=== PATIENT | female | born 1940 | race Two or more races ===

== ENCOUNTER 2022-05-07 14:49 | Inpatient (IN) | payer MEDICARE, OTHER ==
[~2022-05-07] VITALS: Ht 157.5 cm; Wt 62.1 kg
--- NOTE | 2022-05-07 15:09 | NUR ---
BIB SON FOR FURTHER EVAL AND MANAGEMENT OF RIGHT LEG CELLULITIS. THE PATIENT IS ALERT AND ORIENTED X3. IN ROOM AIR AND DENIES SOB. RESPIRATION REGLAR AND UNLABORED. THE PATIENT IS ATTACHED TO THE MONITOR. BLANKET PROVIDED FOR COFMORT. WILL CONTINUE TO MONITOR THE PATIENT.
--- NOTE | 2022-05-07 15:11 | NUR ---
DR HARO AT THE BEDSIDE
[2022-05-07] MEDS ORDERED: BENA40TA8 PO (15:24)
[2022-05-07] MEDS ORDERED: ATEN50TA PO (15:24)
[2022-05-07] MEDS ORDERED: METH5TAB6 PO (15:24)
[2022-05-07] MEDS ORDERED: SIMV-46 PO (15:24)
[2022-05-07] MEDS ORDERED: DABI150C PO (15:24)
--- NOTE | 2022-05-07 15:24 | NUR ---
IV LINE IS ESTABLISHED, BLOOD SPECIMEN COLLECTED AND SENT TO THE LAB. THE LINE IS SALINE LOCKED.
[2022-05-07 15:47] LABS: BASOPHILS # (AUTO) 0.1 K/uL (0.0-0.2); BASOPHILS % (AUTO) 0.9 % (0.0-2.0); EOSINOPHILS % (AUTO) 6.3 % (0.0-6.0); HEMATOCRIT 36 % (33-45); HEMOGLOBIN 12.2 g/dL (11.5-14.8); LYMPHOCYTES # (AUTO) 2.4 K/uL (0.8-4.8); LYMPHOCYTES % (AUTO) 29.8 % (20.0-44.0); MEAN CORPUSCULAR HGB CONC 34 g/dl (31.0-36.0); MEAN CORPUSCULAR VOLUME 90 fL (82-100); MONOCYTES # (AUTO) 0.5 K/uL (0.1-1.30); MONOCYTES % (AUTO) 6.4 % (2.0-12.0); NEUTROPHILS # (AUTO) 4.5 K/uL (1.8-8.9); NEUTROPHILS % (AUTO) 56.6 % (43.0-81.0); PLATELET COUNT (AUTO) 279 K/uL (150-450); RED BLOOD CELL COUNT(AUTO) 3.97 MIL/uL (4.0-5.2)
[2022-05-07 15:56] LABS: CARBON DIOXIDE 25 mmol/L (21-32); CHLORIDE 102 mmol/L (98-107); CREATININE 1.2 mg/dL (0.6-1.3); GLUCOSE 95 mg/dL (74-106); POTASSIUM 5.3 mmol/L (3.5-5.1); SODIUM SERUM 135 mmol/L (136-145); UREA NITROGEN, BLOOD 32 mg/dL (7-18)
--- NOTE | 2022-05-07 16:46 | NUR ---
COVID ANTIGEN SWAB DONE AND SENT TO THE LAB
[2022-05-07] MEDS ORDERED: VANCOMYCIN 1 GM in IV D5W 250 ML IV ONE (17:00)
[2022-05-07] MEDS ORDERED: FUROSEMIDE 20 MG/2 ML VIAL ONE (17:19)
[2022-05-07] MEDS ORDERED: IV NS 0.9% 500 ML BAG IV ONE (17:30)
[2022-05-07] MEDS ORDERED: ONDANSETRON HCL/PF 4 MG/2 ML VIAL IVP PRN (17:30)
[2022-05-07] MEDS ORDERED: ZOLPIDEM TARTRATE 5 MG TABLET PO PRN (17:30)
[2022-05-07] MEDS ORDERED: ACETAMINOPHEN 325 MG TABLET PO PRN (17:30)
[2022-05-07] MEDS ORDERED: MAGNESIUM HYDROXIDE 30 ML UDC PO PRN (17:30)
[2022-05-07] MEDS ORDERED: MAG HYDROX/AL HYDROX/SIMETH 30 ML UDC PO PRN (17:30)
[2022-05-07] MEDS ORDERED: Z GUARD REMEDY 4 OZ OINT TP PRN (17:30)
[2022-05-07] MEDS ORDERED: FUROSEMIDE 40 MG/4 ML VIAL IV ONE (17:30)
--- NOTE | 2022-05-07 19:14 | NUR ---
REPORT GIVEN TO NURSE CASTILLO
--- NOTE | 2022-05-07 19:55 | NUR ---
RECEIVED PATIENT AWAKE WITH ONGOING IV MEDS INFUSION. AAOX4. ABLE TO USE WALKER. VITALS WITHIN NORMAL RANGE
--- NOTE | 2022-05-07 20:31 | NUR ---
PT GOING TO 324-2 PER RN ALARM INSTALLATION TECHNICIAN.
--- NOTE | 2022-05-07 20:56 | NUR ---
REPORT GIVEN TO TAB ALLEN
--- NOTE | 2022-05-07 21:02 | NUR ---
PT TRANSFERRED TO [facility]
[2022-05-07 21:04] VITALS: BP 130/54
[2022-05-07] MEDS: SIMVASTATIN 20 MG TABLET PO SCH (21:41)
[2022-05-07] MEDS: IV NS 0.9% 1,000 ML IV PRN (21:42)
--- NOTE | 2022-05-07 22:33 | NUR ---
MS/TELE/RN RECEIVED PATIENT AT AROUND 21:05 FROM E.R. VIA [facility]. PATIENT WAS AWAKE, ALERT, ORIENTED X 4, NO C/O PAIN, NO SIGNS OF DISTRESS NOTED. MADE PATIENT COMFORTABLE IN BED, ADMISSION DONE, PATIENT IS SLOVENIAN SPEAKING, UNDERSTANDS AND SPEAKS LITTLE DUTCH, SHIREENJACQUELINE MÉNDEZA, INTERPRETED FOR THE PATIENT. PATIENT UNABLE TO PROVIDE COVID19 AND PNA VACCINES INFORMATIONS. PHYSICAL ASSESSMENT DONE, TAUGHT THE USE OF CALL LIGHT AND PLACED IT AT BEDSIDE WITHIN REACH. DALL PRECAUTIONS PER PROTOCOL IMPLEMENTED. PLAN OF CARE DISCUSSED, VERBALISED UNDERSTANDING AND AGREEMENT TO THE PLAN, NEEDS ATTENDED, WILL MONITOR.
--- NOTE | 2022-05-08 05:50 | NUR ---
MS/TELE/RN PATIENT IS STILL SLEEPING AT THIS TIME, NO SIGNS OF DISTRESS NOTED, CALL LIGHT IN EACH, ALL NEEDS ATTENDED AT THIS TIME, WILL CONTINUE TO MONITOR.
--- NOTE | 2022-05-08 07:00 | NUR ---
MS RN OPENING NOTES PATIENT LAYING IN BED, A/O X 4, ABLE TO MAKE NEEDS KNOWN. TOLERATING WELL ON ROOM AIR WITH NO S/S RESPIRATORY DISTRESS. NO COMPLAINTS OF PAIN OR DISCOMFORT AT THIS TIME. L AC # 20 G CLEAN AND INTACT WITH NS INFUSING @ 75 ML/HR. SAFETY MEASURES IN PLACE: BED IN LOWEST LOCKED POSITION, SIDE RAILS UP X 2, CALL LIGHT WITHIN REACH. WILL CONTINUE TO MONITOR.
[2022-05-08 07:29] LABS: BASOPHILS # (AUTO) 0.1 K/uL (0.0-0.2); BASOPHILS % (AUTO) 0.8 % (0.0-2.0); HEMATOCRIT 35 % (33-45); HEMOGLOBIN 11.6 g/dL (11.5-14.8); LYMPHOCYTES # (AUTO) 1.8 K/uL (0.8-4.8); LYMPHOCYTES % (AUTO) 26.1 % (20.0-44.0); MEAN CORPUSCULAR HGB CONC 33 g/dl (31.0-36.0); MEAN CORPUSCULAR VOLUME 91 fL (82-100); MONOCYTES # (AUTO) 0.5 K/uL (0.1-1.30); MONOCYTES % (AUTO) 7.6 % (2.0-12.0); NEUTROPHILS # (AUTO) 4.1 K/uL (1.8-8.9); NEUTROPHILS % (AUTO) 58.5 % (43.0-81.0); PLATELET COUNT (AUTO) 258 K/uL (150-450); RED BLOOD CELL COUNT(AUTO) 3.86 MIL/uL (4.0-5.2); WHITE BLOOD COUNT (AUTO) 7.1 K/uL (4.3-11.0)
[2022-05-08 07:44] LABS: CALCIUM, SERUM 8.8 mg/dL (8.5-10.1); CHLORIDE 106 mmol/L (98-107); GLUCOSE 80 mg/dL (74-106); MAGNESIUM 2.3 mg/dL (1.8-2.4); PHOSPHORUS 4.1 mg/dL (2.5-4.9); POTASSIUM 5.1 mmol/L (3.5-5.1); SODIUM SERUM 140 mmol/L (136-145); UREA NITROGEN, BLOOD 25 mg/dL (7-18)
[2022-05-08 08:00] LABS: CARBON DIOXIDE 28 mmol/L (21-32)
[2022-05-08 08:01] LABS: THYROID STIMULATING HORMONE 3.757 uIU/mL (0.358-3.74)
[2022-05-08] MEDS: ATENOLOL 50 MG TABLET PO SCH (09:00)
[2022-05-08] MEDS: BENAZEPRIL HCL 10 MG TABLET PO SCH (09:25)
[2022-05-08] MEDS: METHIMAZOLE (5MG) 5 MG TABLET PO SCH (09:26)
[2022-05-08] MEDS: IV NS 0.9% 1,000 ML IV PRN (11:55)
[2022-05-08] MEDS: DABIGATRAN ETEXILATE MESYLATE 150 MG CAPSULE PO SCH (16:31)
[2022-05-08] MEDS ORDERED: ENOXAPARIN SODIUM 40 MG/0.4 ML DISP.SYRIN SQ SCH ×2 (17:00→21:00)
[2022-05-08] MEDS ORDERED: VANCOMYCIN 0.75 GM in IV D5W 250 ML IV SCH (18:00)
--- NOTE | 2022-05-08 19:00 | NUR ---
MS RN CLOSING NOTES PATIENT LAYING IN BED, A/O X 4, ABLE TO MAKE NEEDS KNOWN. TOLERATING WELL ON ROOM AIR WITH NO S/S RESPIRATORY DISTRESS. NO COMPLAINTS OF PAIN OR DISCOMFORT AT THIS TIME. L AC # 20 G CLEAN AND INTACT AND FLUSHING WELL. SAFETY MEASURES IN PLACE: BED IN LOWEST LOCKED POSITION, SIDE RAILS UP X 2, CALL LIGHT WITHIN REACH. ALL NEEDS MET. WILL ENDORSE TO SANITARY CHEMIST FOR ITALO.
--- NOTE | 2022-05-08 19:40 | NUR ---
MS RN OPENING NOTE PATIENT AWAKE IN BED, ALERT/ORIENTED X 4, PT ABLE TO MAKE NEEDS KNOWN, MALAWIAN SPEAKING. PATIENT DENIES PAIN AT THIS TIME. PATIENT STABLE ON RA, NO S/S OF DISTRESS OF DISTRESS OR SOB NOTED, BREATHING EVEN AND UNLABORED. LEFT AC #20G IV ACCESS INTACT AND INFUSING NS @ 75 ML/HR. SAFETY MEASURES IN PLACE: CALL LIGHT WITHIN REACH, SIDE RAILS UP X 2, BED LOCKED IN LOWEST POSITION, BED ALARM ON. WILL CONTINUE TO MONITOR PATIENT
[2022-05-08 20:00] VITALS: BP 106/59
[2022-05-08] MEDS: SIMVASTATIN 20 MG TABLET PO SCH (21:28)
[2022-05-09] MEDS: IV NS 0.9% 1,000 ML IV PRN (04:23)
[2022-05-09 06:39] LABS: CALCIUM, SERUM 8.6 mg/dL (8.5-10.1); CARBON DIOXIDE 29 mmol/L (21-32); CHLORIDE 108 mmol/L (98-107); CREATININE 0.8 mg/dL (0.6-1.3); GLUCOSE 93 mg/dL (74-106); PHOSPHORUS 2.9 mg/dL (2.5-4.9); POTASSIUM 4.7 mmol/L (3.5-5.1); SODIUM SERUM 140 mmol/L (136-145); UREA NITROGEN, BLOOD 14 mg/dL (7-18)
[2022-05-09 06:50] LABS: BASOPHILS # (AUTO) 0.1 K/uL (0.0-0.2); BASOPHILS % (AUTO) 0.9 % (0.0-2.0); EOSINOPHILS % (AUTO) 7.5 % (0.0-6.0); HEMATOCRIT 35 % (33-45); HEMOGLOBIN 11.7 g/dL (11.5-14.8); LYMPHOCYTES # (AUTO) 1.8 K/uL (0.8-4.8); LYMPHOCYTES % (AUTO) 27.4 % (20.0-44.0); MEAN CORPUSCULAR HGB CONC 33 g/dl (31.0-36.0); MEAN CORPUSCULAR VOLUME 91 fL (82-100); MONOCYTES # (AUTO) 0.4 K/uL (0.1-1.30); MONOCYTES % (AUTO) 6.7 % (2.0-12.0); NEUTROPHILS # (AUTO) 3.9 K/uL (1.8-8.9); NEUTROPHILS % (AUTO) 57.5 % (43.0-81.0); PLATELET COUNT (AUTO) 245 K/uL (150-450); RED BLOOD CELL COUNT(AUTO) 3.88 MIL/uL (4.0-5.2); WHITE BLOOD COUNT (AUTO) 6.7 K/uL (4.3-11.0)
--- NOTE | 2022-05-09 07:09 | NUR ---
MS RN CLOSING NOTE PATIENT AWAKE IN BED, ALERT/ORIENTED X 4, PT ABLE TO MAKE NEEDS KNOWN, CZECH SPEAKING. PATIENT DENIES PAIN AT THIS TIME. PATIENT STABLE ON RA, NO S/S OF DISTRESS OF DISTRESS OR SOB NOTED, BREATHING EVEN AND UNLABORED. LEFT AC #20G IV ACCESS INTACT AND INFUSING NS @ 75 ML/HR. MEDICATIONS GIVEN ORDERED, PT NEEDS MET THROUGHOUT SHIFT. SAFETY MEASURES IN PLACE: CALL LIGHT WITHIN REACH, SIDE RAILS UP X 2, BED LOCKED IN LOWEST POSITION, BED ALARM ON. ENDORSED TO DAYSHIFT NURSE FOR CONTINUITY OF CARE
--- NOTE | 2022-05-09 07:28 | NUR ---
MS RN OPENING NOTES RECEIVED PT IN BED ASLEEP, EASILY AROUSED. A/O X4, KENYAN SPEAKING. ABLE TO MAKE NEEDS KNOWN. ON RA, TOLERATING WELL. NO SOB NOTED. NOT IN ANY SIGN OF RESPIRATORY DISTRESS. IV ACCESS IN LAC G #20 INTACT AND PATENT WITH NS INFUSING AT 75ML/HR. SAFETY MEASURES IN PLACE: BED IN LOWEST AND LOCKED POSITION, SIDE RAILS UP X3, BED ALARM ON, AND CALL LIGHT WITHIN REACH. WILL CONTINUE TO MONITOR PT.
[2022-05-09 08:00] VITALS: BP 120/54
[2022-05-09] MEDS: DABIGATRAN ETEXILATE MESYLATE 150 MG CAPSULE PO SCH (09:45)
[2022-05-09] MEDS: METHIMAZOLE (5MG) 5 MG TABLET PO SCH (09:45)
[2022-05-09 09:46] VITALS: BP 120/54
[2022-05-09] MEDS: ATENOLOL 50 MG TABLET PO SCH (09:46)
[2022-05-09] MEDS: BENAZEPRIL HCL 10 MG TABLET PO SCH (09:46)
[2022-05-09] MEDS ORDERED: CEPH500C2 PO (10:28)
[2022-05-09] MEDS ORDERED: SULF1TAB48 PO (10:28)
--- NOTE | 2022-05-09 10:33 | NUR ---
WOUND CARE CONSULT: PT PRESENTS WITH WEEPING EDEMA TO RT LOWER LEG, PRESENT ON ADMISSION. DR NOEL NOTIFIED OF DPM CONSULT REQUEST. IN AGREEMENT WITH PLAN OF CARE.
--- NOTE | 2022-05-09 14:22 | NUR ---
DATA INTEGRATION DEVELOPER NOTES PT DISCHARGED TO HOME IN STABLE CONDITION. PT A/O X4, ABLE TO MAKE NEEDS KNOWN. ON RA, TOLERATING WELL WITH SPO2 98%. BREATHING EVEN AND UNLABORED. NOT IN ANY SIGN OF RESPIRATORY DISTRESS. VITAL SIGNS TAKEN, STABLE, AND RECORDED. PT REFUSED TO HAVE HER SKIN ISSUES PHOTOGRAPHED. ALL BELONGINGS ACCOUNTED FOR. DISCHARGED INSTRUCTIONS AND HEALTH TEACHINGS GIVEN TO PT AND PT VERBALIZED UNDERSTANDING. IV ACCESS IN LAC G #20 REMOVED WITH NO ACTIVE BLEEDING NOTED. DRY PRESSURE DRESSING APPLIED AT BOTH SITE. PT LEFT THE UNIT AT 1415 VIA WHEELCHAIR ACCOMPANIED BY LIZET LAUGERRE WITH HER DAUGHTER AND SON JOHN. AND CHARGED NURSE AWARE OF DISCHARGED.
[2022-05-09] MEDS ORDERED: VANCOMYCIN 1 GM in IV D5W 250 ML IV SCH (18:00)
[2022-05-10] MEDS ORDERED: BENAZEPRIL HCL 20 MG TABLET PO SCH (09:00)
== END 2022-05-09 14:30 | disposition home or self-care (01) | DRG 603 ==
LOC: ER 14:57 → MED 20:57
PROVIDERS: ADMIT Nurse Practitioner Acute Care; ATTEND Nurse Practitioner Acute Care
DX: L03.115 Cellulitis of right lower limb (principal); E87.1 Hypo-osmolality and hyponatremia; E03.9 Hypothyroidism, unspecified; E87.5 Hyperkalemia; Z79.899 Other long term (current) drug therapy; E78.5 Hyperlipidemia, unspecified; I10 Essential (primary) hypertension; R79.89 Other specified abnormal findings of blood chemistry; M20.41 Other hammer toe(s) (acquired), right foot; M20.42 Other hammer toe(s) (acquired), left foot; I89.0 Lymphedema, not elsewhere classified; I87.2 Venous insufficiency (chronic) (peripheral)
CPT/HCPCS: 36415; 80048-TC; 83735-TC; 84100-TC; 84439-TC; 84443-TC; 85025-TC; 85652-TC; 86140-TC; 87081-TC; 93971-TC; C9803; G0378; J1940; J3370; J7030; J7040; J7060

== ENCOUNTER 2022-11-07 10:26 | Emergency (ER) | payer MEDICARE, OTHER ==
[~2022-11-07] VITALS: Ht 154.9 cm; Wt 72.6 kg
[~2022-11-07 10:26] MED LIST: ATEN50TA PO; BENA40TA8 PO; CEPH500C2 PO; DABI150C PO; METH5TAB6 PO; SIMV-46 PO; SULF1TAB48 PO
--- NOTE | 2022-11-07 10:49 | NUR ---
MOVE SHEET SUBMITTED.
--- NOTE | 2022-11-07 10:49 | NUR ---
SEEN BY ER DOCTOR
--- NOTE | 2022-11-07 11:04 | NUR ---
EMT AT BEDSIDE FOR EKG
--- NOTE | 2022-11-07 11:09 | NUR ---
ESTABLISHED IV 20G RIGHT AC. BLOOD DRAWN AND SENT TO LAB FOR PICKUP.
[2022-11-07 11:36] LABS: BASOPHILS # (AUTO) 0.1 K/uL (0.0-0.2); BASOPHILS % (AUTO) 0.9 % (0.0-2.0); EOSINOPHILS % (AUTO) 3.7 % (0.0-6.0); HEMATOCRIT 39 % (33-45); HEMOGLOBIN 12.9 g/dL (11.5-14.8); LYMPHOCYTES # (AUTO) 1.4 K/uL (0.8-4.8); LYMPHOCYTES % (AUTO) 20.9 % (20.0-44.0); MEAN CORPUSCULAR HGB CONC 33 g/dl (31.0-36.0); MEAN CORPUSCULAR VOLUME 92 fL (82-100); MONOCYTES # (AUTO) 0.4 K/uL (0.1-1.30); MONOCYTES % (AUTO) 6.6 % (2.0-12.0); NEUTROPHILS # (AUTO) 4.6 K/uL (1.8-8.9); NEUTROPHILS % (AUTO) 67.9 % (43.0-81.0); PLATELET COUNT (AUTO) 312 K/uL (150-450); RED BLOOD CELL COUNT(AUTO) 4.17 MIL/uL (4.0-5.2); WHITE BLOOD COUNT (AUTO) 6.8 K/uL (4.3-11.0)
[2022-11-07 12:04] LABS: ALANINE AMINOTRANSFERASE 13 U/L (12-78); ALBUMIN 3.5 g/dL (3.4-5.0); ALKALINE PHOSPHATASE 56 U/L (46-116); ASPARTATE AMINOTRANSFERASE 22 U/L (15-37); BILIRUBIN,DIRECT 0.1 mg/dL (0.0-0.2); BILIRUBIN,TOTAL 0.5 mg/dL (0.2-1.0); CALCIUM, SERUM 9.4 mg/dL (8.5-10.1); CARBON DIOXIDE 28 mmol/L (21-32); CHLORIDE 101 mmol/L (98-107); CREATININE 0.9 mg/dL (0.6-1.3); GLUCOSE 125 mg/dL (74-106); POTASSIUM 4.6 mmol/L (3.5-5.1); SODIUM SERUM 135 mmol/L (136-145); TOTAL PROTEIN, SERUM 7.8 g/dL (6.4-8.2); UREA NITROGEN, BLOOD 14 mg/dL (7-18)
--- NOTE | 2022-11-07 12:13 | NUR ---
RSDIOLOGY CALLED TO F/U ON ORDERS
[2022-11-07 12:56] LABS: BILIRUBIN,URINE NEGATIVE (NEGATIVE); COLOR,URINE YELLOW (YELLOW); LEUKOCYTE ESTERASE ,URINE NEGATIVE (NEGATIVE); NITRITE, URINE NEGATIVE (NEGATIVE); PH,URINE 7.5 (5.0-8.0); PROTEIN,URINE NEGATIVE (NEGATIVE); UGLUCOSE NEGATIVE (NEGATIVE); UROBILINOGEN,URINE 0.2 EU/dL (0.2)
[2022-11-07] MEDS ORDERED: LIDO1ADH TP (13:04)
[2022-11-07 14:25] VITALS: BP 145/75
== END 2022-11-07 14:27 | disposition home or self-care (01) ==
LOC: ER 10:47
DX: R42 Dizziness and giddiness (principal); I10 Essential (primary) hypertension; E78.00 Pure hypercholesterolemia, unspecified; Z88.2 Allergy status to sulfonamides; Z88.8 Allergy status to other drugs, medicaments and biological substances; Z79.899 Other long term (current) drug therapy
CPT/HCPCS: 36415; 70450-TC; 71045-TC; 80048-TC; 80076-TC; 84484-TC; 85025-TC; 85652-TC; 85730-TC

== ENCOUNTER 2022-12-17 16:01 | Inpatient (IN) | payer MEDICARE, OTHER ==
[~2022-12-17] VITALS: Ht 162.6 cm; Wt 61.7 kg
[~2022-12-17 16:01] MED LIST changes: +LIDO1ADH TP
--- NOTE | 2022-12-17 16:11 | NUR ---
BIB FAMILY C/O WORSENING SOB X 3 DAYS, THROAT DISCOMFORT/TIGHTNESS X TODAY, FAMILY S/P TAKING NEW CARDIAC MEDICATION SINCE MONDAY. INSPIRATORY AND EXPIRATORY WHEEXING NOTED. PT PLACED IN BED AND CONNECTED TO MONITOR.
--- NOTE | 2022-12-17 16:12 | NUR ---
ESTABLISHED IV ACCESS, BLOOD DRAWN AND SENT TO LAB. AT BEDSIDE FOR EVAL.
--- NOTE | 2022-12-17 16:49 | NUR ---
MOVE SHEET SUBMITTED.
--- NOTE | 2022-12-17 17:00 | NUR ---
[facility] CALLED SPECIALTY COOK PAGED.
[2022-12-17 17:01] LABS: BASOPHILS % (AUTO) 0.1 % (0.0-2.0); EOSINOPHILS % (AUTO) 0.3 % (0.0-6.0); HEMATOCRIT 36 % (33-45); HEMOGLOBIN 11.7 g/dL (11.5-14.8); LYMPHOCYTES # (AUTO) 1.1 K/uL (0.8-4.8); LYMPHOCYTES % (AUTO) 9.9 % (20.0-44.0); MEAN CORPUSCULAR HGB CONC 32 g/dl (31.0-36.0); MEAN CORPUSCULAR VOLUME 92 fL (82-100); MONOCYTES # (AUTO) 0.1 K/uL (0.1-1.30); MONOCYTES % (AUTO) 1.1 % (2.0-12.0); NEUTROPHILS # (AUTO) 10.2 K/uL (1.8-8.9); NEUTROPHILS % (AUTO) 88.6 % (43.0-81.0); PLATELET COUNT (AUTO) 233 K/uL (150-450); RED BLOOD CELL COUNT(AUTO) 3.94 MIL/uL (4.0-5.2); WHITE BLOOD COUNT (AUTO) 11.6 K/uL (4.3-11.0)
--- NOTE | 2022-12-17 17:02 | NUR ---
URINE SAMPLE COLLECTED AND SENT TO LAB
[2022-12-17 17:18] LABS: CALCIUM, SERUM 9.5 mg/dL (8.5-10.1); CARBON DIOXIDE 24 mmol/L (21-32); CHLORIDE 98 mmol/L (98-107); CREATININE 1.2 mg/dL (0.6-1.3); GLUCOSE 137 mg/dL (74-106); POTASSIUM 4.8 mmol/L (3.5-5.1); SODIUM SERUM 133 mmol/L (136-145); UREA NITROGEN, BLOOD 19 mg/dL (7-18)
--- NOTE | 2022-12-17 17:24 | NUR ---
LACTIC ACID 6.0 DR. HARO INFORMED.
[2022-12-17 17:30] LABS: ALANINE AMINOTRANSFERASE 28 U/L (12-78); ALBUMIN 3.4 g/dL (3.4-5.0); ALKALINE PHOSPHATASE 85 U/L (46-116); ASPARTATE AMINOTRANSFERASE 32 U/L (15-37); BILIRUBIN,DIRECT 0.7 mg/dL (0.0-0.2); BILIRUBIN,TOTAL 1.3 mg/dL (0.2-1.0)
[2022-12-17 18:11] LABS: BILIRUBIN,URINE NEGATIVE (NEGATIVE); COLOR,URINE YELLOW (YELLOW); LEUKOCYTE ESTERASE ,URINE 1+ (NEGATIVE); NITRITE, URINE NEGATIVE (NEGATIVE); PROTEIN,URINE 2+ mg/dl (NEGATIVE); UGLUCOSE NEGATIVE (NEGATIVE)
[2022-12-17 18:26] LABS: BACTERIA,URINE Moderate /HPF (None Seen); SQUAMOUS EPITHELIAL CELL,UR Few /HPF (None Seen)
--- NOTE | 2022-12-17 18:28 | NUR ---
Covid-19 swab is taken and sent to lab.
[2022-12-17] MEDS ORDERED: CEFEPIME 1 GM in IV D5W 50 ML IV ONE (19:00)
[2022-12-17] MEDS ORDERED: VANCOMYCIN 1 GM in IV D5W 250 ML IV ONE (19:00)
[2022-12-17] MEDS ORDERED: IV NS 0.9% 1,000 ML BAG IV ONE (19:00)
[2022-12-17] MEDS ORDERED: CEFEPIME 1 GM VIAL ONE (19:42)
[2022-12-17] MEDS ORDERED: VANCOMYCIN 1 GM VIAL ONE (19:42)
[2022-12-17] MEDS ORDERED: MENTHOL TP PRN (20:30)
[2022-12-17] MEDS ORDERED: LIDOCAINE TP PRN (20:30)
[2022-12-17] MEDS ORDERED: ONDANSETRON HCL/PF 4 MG/2 ML VIAL IVP PRN (20:30)
--- NOTE | 2022-12-17 21:15 | NUR ---
REPORT GIVEN TO JEFF RN ROOM 117
--- NOTE | 2022-12-17 21:30 | NUR ---
COTTON SAMPLER AT BEDSIDE
--- NOTE | 2022-12-17 21:50 | NUR ---
PT TRANSFERRING TO 117-1 VIA ACLS PROTOCOL. ALL BELONGINGS WITH PT. VSS.
[2022-12-17] MEDS: SIMVASTATIN 20 MG TABLET PO SCH (22:11)
[2022-12-17] MEDS: IV NS 0.9% 1,000 ML IV PRN (22:12)
[2022-12-17] MEDS ORDERED: CEFTRIAXONE 1 G VIAL ONE (22:15)
[2022-12-17] MEDS: CEFTRIAXONE 1 G in IV D5W 50 ML IV SCH (22:17)
[2022-12-17 22:25] VITALS: BP 138/74
--- NOTE | 2022-12-17 22:30 | NUR ---
CHECK CLERKWORKFORCE ADVISOR NOTES - RECEIVED PATIENT FROM ED VIA [facility]ATTAN AT 2151 UNDER THE CARE OF NICO HERNANDEZ NP WITH PRIMARY DX OF SEPSIS AND SECONDARY DX OF PYELONEPHRITIS. PATIENT IS A/O X4, ICELANDIC SPEAKING AND A POOR HISTORIAN. CONTACTED FAMILY AND SPOKE WITH DAUGHTER AND GRANDSON FOR PMI. BREATHING IS EVEN AND NON-LABORED BUT WITH SOME SHORTNESS OF BREATH. ON O2 AT 2LPM VIA NASAL CANULA. NOT IN APPARENT DISTRESS. DENIES PAIN AT THIS TIME. HAS LEFT ANTECUBITAL IV ACCESS #20G AND SALINE LOCKED. NO S/S OF INFILTRATION NOTED. PATIENT IS AMBULATORY WITH FWW AND USES THE BEDSIDE COMMODE. VS TAKEN AND SKIN ASSESSMENT DONE. ALL BELONGINGS ACCOUNTED FOR. ORIENTED PATIENT TO UNIT AND STAFF. SAFETY PRECAUTIONS IN PLACE: BED LOCKED AND IN LOW POSITION, SIDE RAILS UP X2, CALL LIGHT WITHIN REACH. WILL CONTINUE PLAN OF CARE.
[2022-12-18] VITALS: BP 100/57
[2022-12-18 04:00] VITALS: BP 102/52
--- NOTE | 2022-12-18 07:07 | NUR ---
TROLLEY COACH DRIVER CLOSING NOTES - PATIENT SLEEPING, EASY TO AROUSE. NO ACUTE DISTRESS THROUGHOUT THE NIGHT. NO SOB OR NOTED. TOLERATING O2 AT 2LPM WELL. NO S/S OF PAIN OR DISCOMFORT NOTED. AFEBRILE. ON TELE MONITOR READING CONTROLLED A-FIB AT 87 BPM. HAS LEFT ANTECUBITAL IV ACCESS #20G WITH NS RUNNING AT 50 ML/HR. INTACT, PATENT AND FLUSHING. ALL DUE MEDS GIVEN AND NEEDS ATTENDED. SAFETY PRECAUTIONS MAINTAINED. WILL ENDORSE TO NEXT SHIFT FOR ITALO.
[2022-12-18 07:20] LABS: BASOPHILS % (AUTO) 0.3 % (0.0-2.0); EOSINOPHILS % (AUTO) 0.3 % (0.0-6.0); HEMATOCRIT 30 % (33-45); HEMOGLOBIN 10.1 g/dL (11.5-14.8); LYMPHOCYTES # (AUTO) 0.7 K/uL (0.8-4.8); LYMPHOCYTES % (AUTO) 7.9 % (20.0-44.0); MEAN CORPUSCULAR HGB CONC 34 g/dl (31.0-36.0); MEAN CORPUSCULAR VOLUME 91 fL (82-100); MONOCYTES # (AUTO) 0.6 K/uL (0.1-1.30); MONOCYTES % (AUTO) 6.5 % (2.0-12.0); NEUTROPHILS # (AUTO) 7.5 K/uL (1.8-8.9); PLATELET COUNT (AUTO) 176 K/uL (150-450); WHITE BLOOD COUNT (AUTO) 8.8 K/uL (4.3-11.0)
[2022-12-18 07:26] LABS: ALBUMIN 2.5 g/dL (3.4-5.0); BILIRUBIN,TOTAL 0.6 mg/dL (0.2-1.0); CALCIUM, SERUM 8.2 mg/dL (8.5-10.1); MAGNESIUM 2.1 mg/dL (1.8-2.4); PHOSPHORUS 2.4 mg/dL (2.5-4.9); POTASSIUM 4.7 mmol/L (3.5-5.1); TOTAL PROTEIN, SERUM 6.2 g/dL (6.4-8.2)
[2022-12-18 07:40] LABS: THYROID STIMULATING HORMONE 0.996 uIU/mL (0.358-3.74)
[2022-12-18 08:00] VITALS: BP 115/76
[2022-12-18] MEDS: PANTOPRAZOLE 40 MG VIAL IV SCH (08:44)
[2022-12-18] MEDS: ACETAMINOPHEN 325 MG TABLET PO PRN ×2 (08:45→16:03)
--- NOTE | 2022-12-18 08:45 | NUR ---
CLASSIFIED AD TAKER OPENING NOTE RECEIVED REPORT FROM MILANA BARTH. PT IS ALERT AND ORIENTED X4. MOHAWK SPEAKING. PT HAS IV ON LEFT ANTECUTIAL. IV ACCESS, PATENT AND INTACT. PT ON 2 L NASAL CANNULA TOLERATING AT 99%. PT IS AMBULATORY WITH STANDBY ASSISTANCE. ALL SAFETY MEASURES IN PLACE. CALL LIGHT WITHIN REACH. BED LOCKED AT LOWEST POSITION. SIDE RAILS UP X2. BED ALARM ON
[2022-12-18] MEDS: METHIMAZOLE (5MG) 5 MG TABLET PO SCH (08:48)
[2022-12-18] MEDS ORDERED: DABIGATRAN ETEXILATE MESYLATE 150 MG CAPSULE PO SCH (09:00)
[2022-12-18] MEDS ORDERED: DABIGATRAN ETEXILATE MESYLATE 75 MG CAPSULE PO SCH (09:00)
--- NOTE | 2022-12-18 09:32 | NUR ---
rn note notified platelets dropped to 176, yesterday was 233 and hgb 10.0 and if okay to give pradaxa. said okay to give pradaxa
--- NOTE | 2022-12-18 09:45 | NUR ---
rn note notified dr. philip that pt was taking praxada before hospital and her insurance isnt covering it. pt is currently taking eliquis 2.5 mg bid at home.notified if it could be switched to eliquis. dr. philip said okay to switch
[2022-12-18 12:00] VITALS: BP 97/59
--- NOTE | 2022-12-18 12:00 | NUR ---
rn note per dr. philip, discontinued Pradaxa and switched to Eliquis. aware
[2022-12-18 16:00] VITALS: BP 132/76
[2022-12-18] MEDS ORDERED: K PHOS NEUTRAL 250 MG TABLET PO ONE (16:00)
--- NOTE | 2022-12-18 16:00 | NUR ---
rn note updated about family about pt condition. notified that family would like to speak with him regarding updates
[2022-12-18] MEDS: APIXABAN 2.5 MG TABLET PO SCH (16:03)
[2022-12-18] MEDS: IV NS 0.9% 1,000 ML IV PRN (17:04)
--- NOTE | 2022-12-18 19:18 | NUR ---
ANTHROPOLOGIST PHYSICAL CLOSING NOTE PT IS ALERT AND ORIENTED X4. JAPANESE SPEAKING.PT ON TELE MONITOR PT HAS IV ON LEFT ANTECUTIAL. IV ACCESS, PATENT AND INTACT. PT ON 2 L NASAL CANNULA TOLERATING AT 99%. ALL SAFETY MEASURES IN PLACE. CALL LIGHT WITHIN REACH. BED LOCKED AT LOWEST POSITION. SIDE RAILS UP X2. BED ALARM ON.ENDORSED TO RN ANESTHETIST RN FOR CONTUTIY OF CARE
--- NOTE | 2022-12-18 19:30 | NUR ---
TISSUE PACKER OPENING NOTE RECEIVED PT AWAKE IN BED. PT IS ALERT AND ORIENTED X4. AUSTRIAN SPEAKING. PT HAS IV ON LEFT ANTECUBITAL. IV ACCESS, PATENT AND INTACT. PT ON 2 L NASAL CANNULA TOLERATING AT 99%. PT IS AMBULATORY WITH STANDBY ASSISTANCE. ALL SAFETY MEASURES IN PLACE. CALL LIGHT WITHIN REACH. BED LOCKED AT LOWEST POSITION. SIDE RAILS UP X2. BED ALARM ON, WILL CONTINUE TO MONITOR THROUGHOUT THE SHIFT.
[2022-12-18 20:00] VITALS: BP 107/58
[2022-12-18] MEDS: VANCOMYCIN 1 GM in IV D5W 250 ML IV SCH (20:43)
[2022-12-18] MEDS: CEFTRIAXONE 1 G in IV D5W 50 ML IV SCH (21:10)
[2022-12-18] MEDS: SIMVASTATIN 20 MG TABLET PO SCH (21:10)
[2022-12-19] VITALS: BP 128/51
[2022-12-19 04:00] VITALS: BP 115/60
--- NOTE | 2022-12-19 04:00 | NUR ---
RN NOTE BLOOD CX RESULTED AT GRAM (-) CHANCE ON 2 ANAEROBIC BOTTLES, FIELD ARTILLERY TARGETING TECHNICIAN MADE AWARE. NNO AT THIS TIME.
--- NOTE | 2022-12-19 06:49 | NUR ---
GLASS HANDLER CLOSING NOTE PT REMAINS IN BED, ALERT AND ORIENTED X4. HAITIAN SPEAKING. PT ON TELE MONITOR READING AFIB AT 82, PT HAS IV ON LEFT AC #20 G. IV ACCESS, PATENT AND INTACT. PT ON 2 L NASAL CANNULA TOLERATING AT 99%. ALL DUE MEDS GIVEN, KEPT DRY AND CLEAN, SAFETY MEASURES IN PLACE. CALL LIGHT WITHIN REACH. BED LOCKED AT LOWEST POSITION. SIDE RAILS UP X2. BED ALARM ON. WILL ENDORSE TO AM SHIFT NURSE FOR CONTINUITY OF CARE.
[2022-12-19 06:55] LABS: CREATININE 0.8 mg/dL (0.6-1.3); POTASSIUM 3.7 mmol/L (3.5-5.1)
--- NOTE | 2022-12-19 07:28 | NUR ---
RN OPENING NOTE RECEIVED PT IN BED. EASY TO AROUSE. PT IS ALERT AND ORIENTED X4. AZERI SPEAKING. PT HAS IV ON LEFT ANTECUBITAL. IV ACCESS, PATENT AND INTACT. PT ON 2 L NC. PT IS AMBULATORY WITH STANDBY ASSISTANCE. ALL SAFETY MEASURES IN PLACE. CALL LIGHT WITHIN REACH. BED LOCKED AT LOWEST POSITION. SIDE RAILS UP X2. BED ALARM ON, WILL CONTINUE TO MONITOR.
[2022-12-19 08:00] VITALS: BP 119/45
[2022-12-19] MEDS: METHIMAZOLE (5MG) 5 MG TABLET PO SCH (08:09)
[2022-12-19] MEDS: PANTOPRAZOLE 40 MG VIAL IV SCH (08:09)
[2022-12-19] MEDS: APIXABAN 2.5 MG TABLET PO SCH ×2 (08:12→16:11)
[2022-12-19 12:00] VITALS: BP 124/76
[2022-12-19 16:00] VITALS: BP 120/66
--- NOTE | 2022-12-19 18:40 | NUR ---
RN CLOSING NOTE PT REMAINS IN BED, ALERT AND ORIENTED X4. IV ACCESS ON LEFT AC #20 G PATENT AND INTACT. PT ON 2 L NASAL CANNULA WITH NO SOB OR SIGNS OF DISTRESS. ALL SAFETY MEASURES IN PLACE. CALL LIGHT WITHIN REACH. BED LOCKED AT LOWEST POSITION. SIDE RAILS UP X2. BED ALARM ON. WILL ENDORSE TO PM SHIFT NURSE FOR ITALO..
--- NOTE | 2022-12-19 19:30 | NUR ---
TUCKPOINTER OPENING NOTE RECEIVED PT AWAKE IN BED. PT IS ALERT AND ORIENTED X4. KITTITIAN SPEAKING. FAMILY MEMBER AT BEDSIDE, PT HAS IV ON LEFT AC #20G AND RAC #22G. IV ACCESS PATENT AND INTACT RUNNING NS AT 50 ML/HR. PT ON 2 L NASAL CANNULA TOLERATING AT 99%. PT IS AMBULATORY WITH STANDBY ASSISTANCE. ALL SAFETY MEASURES IN PLACE. CALL LIGHT WITHIN REACH. BED LOCKED AT LOWEST POSITION. SIDE RAILS UP X2. BED ALARM ON, WILL CONTINUE TO MONITOR THROUGHOUT THE SHIFT.
[2022-12-19 20:00] VITALS: BP 160/91
[2022-12-19] MEDS ORDERED: K PHOS NEUTRAL 250 MG TABLET PO ONE (21:00)
[2022-12-19] MEDS: CEFTRIAXONE 1 G in IV D5W 50 ML IV SCH (22:26)
[2022-12-19] MEDS: VANCOMYCIN 1 GM in IV D5W 250 ML IV SCH (22:26)
[2022-12-19] MEDS: SIMVASTATIN 20 MG TABLET PO SCH (22:26)
[2022-12-20] VITALS: BP 109/75
[2022-12-20 04:00] VITALS: BP 116/72
--- NOTE | 2022-12-20 06:52 | NUR ---
STITCHER FEEDER CLOSING NOTE PT REMAINS IN BED, ALERT AND ORIENTED X4. GABONESE SPEAKING. PT ON TELE MONITOR READING AFIB CONTROLLED AT 64, PT HAS IV ON LEFT AC #20 G AND RAC #20G IV ACCESS, PATENT AND INTACT. PT ON 2 L NASAL CANNULA TOLERATING AT 99%. ALL DUE MEDS GIVEN, KEPT DRY AND CLEAN, SAFETY MEASURES IN PLACE. CALL LIGHT WITHIN REACH. BED LOCKED AT LOWEST POSITION. SIDE RAILS UP X2. BED ALARM ON. WILL ENDORSE TO AM SHIFT NURSE FOR CONTINUITY OF CARE. Addendum: 12/20/22 at 0726 by EMIR CRISTOBAL RN IV ACCESS AT LAC #20G DISLODGED. AM SHIFT RN MADE AWARE.
--- NOTE | 2022-12-20 07:49 | NUR ---
RN OPENING NOTE RECEIVED PT IN BED. EASY TO AROUSE. PT IS ALERT AND ORIENTED X4. TAJIK SPEAKING. PT HAS IV ON LEFT ANTECUBITAL. IV ACCESS, PATENT AND INTACT. PT ON 2 L NC. PT IS AMBULATORY WITH STANDBY ASSISTANCE. ON TELE MONITORING AFIB CONTROLLED HR 80;1. ALL SAFETY MEASURES IN PLACE. CALL LIGHT WITHIN REACH. BED LOCKED AT LOWEST POSITION. SIDE RAILS UP X2. BED ALARM ON. PLAN OF CARE CONTINUE.
[2022-12-20 08:00] VITALS: BP 130/72
[2022-12-20] MEDS: PANTOPRAZOLE 40 MG TABLET.DR PO SCH (08:05)
[2022-12-20] MEDS: METHIMAZOLE (5MG) 5 MG TABLET PO SCH (08:05)
[2022-12-20] MEDS: APIXABAN 2.5 MG TABLET PO SCH ×2 (08:07→16:14)
[2022-12-20 08:57] LABS: CALCIUM, SERUM 7.8 mg/dL (8.5-10.1); CARBON DIOXIDE 27 mmol/L (21-32); CHLORIDE 105 mmol/L (98-107); CREATININE 0.7 mg/dL (0.6-1.3); GLUCOSE 108 mg/dL (74-106); POTASSIUM 3.4 mmol/L (3.5-5.1); SODIUM SERUM 138 mmol/L (136-145); UREA NITROGEN, BLOOD 8 mg/dL (7-18)
[2022-12-20] MEDS ORDERED: POTASSIUM CHLORIDE 20 MEQ TAB.PRT.SR PO SCH (11:30)
[2022-12-20] MEDS: IV NS 0.9% 1,000 ML IV PRN (11:37)
[2022-12-20 12:00] VITALS: BP 129/75
--- NOTE | 2022-12-20 13:27 | NUR ---
NOTED AUDIBLE CRACKLES, NO SHORTNESS OF BREATH NOTED, INFORMED BATACLAN PRINT SUPPORT SPECIALIST, WITH ORDER TO D/C IV FLUIDS, NOTED AND CARRIED OUT.
[2022-12-20 16:00] VITALS: BP 129/72
--- NOTE | 2022-12-20 18:09 | NUR ---
RN CLOSING NOTE PATIENT IN BED AWAKE, PT IS ALERT AND ORIENTED X4. VIETNAMESE SPEAKING. PIV ON RIGHT PATENT AND INTACT, NO IV FLUIDS RUNNING. PT ON 2 L NC, TOLERATING WELL, NO SOB NOTED, RESPIRATION EVEN AND UNLABORED, NOT IN DISTRESS, DENIES ANY PAIN. PT IS AMBULATORY WITH STANDBY ASSISTANCE. ALL SAFETY MEASURES IN PLACE. CALL LIGHT WITHIN REACH. BED LOCKED AT LOWEST POSITION. SIDE RAILS UP X2. BED ALARM ON. WILL ENDORSE TO NIGHT NURSE FOR ITALO.
--- NOTE | 2022-12-20 19:30 | NUR ---
MS RN OPENING NOTE RECEIVED PT AWAKE IN BED. PT IS ALERT AND ORIENTED X4. CAMEROONIAN SPEAKING. FAMILY MEMBER AT BEDSIDE, PT HAS IV ON RAC #22G. IV ACCESS PATENT AND INTACT NO IVF RUNNING AT THIS TIME. PT ON 2 L NASAL CANNULA TOLERATING AT 99%. PT IS AMBULATORY WITH STANDBY ASSISTANCE. ALL SAFETY MEASURES IN PLACE. CALL LIGHT WITHIN REACH. BED LOCKED AT LOWEST POSITION. SIDE RAILS UP X2. BED ALARM ON, WILL CONTINUE TO MONITOR THROUGHOUT THE SHIFT.
[2022-12-20] MEDS: CEFTRIAXONE 1 G in IV D5W 50 ML IV SCH (21:52)
[2022-12-20] MEDS: SIMVASTATIN 20 MG TABLET PO SCH (21:52)
[2022-12-21 04:00] VITALS: BP 129/68
[2022-12-21 07:34] LABS: BASOPHILS % (AUTO) 0.3 % (0.0-2.0); EOSINOPHILS % (AUTO) 2.6 % (0.0-6.0); HEMATOCRIT 28 % (33-45); HEMOGLOBIN 9.4 g/dL (11.5-14.8); LYMPHOCYTES # (AUTO) 1.2 K/uL (0.8-4.8); LYMPHOCYTES % (AUTO) 16.9 % (20.0-44.0); MEAN CORPUSCULAR HGB CONC 33 g/dl (31.0-36.0); MEAN CORPUSCULAR VOLUME 90 fL (82-100); MONOCYTES # (AUTO) 0.8 K/uL (0.1-1.30); MONOCYTES % (AUTO) 11.3 % (2.0-12.0); NEUTROPHILS # (AUTO) 4.9 K/uL (1.8-8.9); NEUTROPHILS % (AUTO) 68.9 % (43.0-81.0); PLATELET COUNT (AUTO) 197 K/uL (150-450); RED BLOOD CELL COUNT(AUTO) 3.16 MIL/uL (4.0-5.2); WHITE BLOOD COUNT (AUTO) 7.1 K/uL (4.3-11.0)
[2022-12-21] MEDS: PANTOPRAZOLE 40 MG TABLET.DR PO SCH (07:53)
[2022-12-21 08:04] LABS: CALCIUM, SERUM 8.1 mg/dL (8.5-10.1); CARBON DIOXIDE 30 mmol/L (21-32); CHLORIDE 107 mmol/L (98-107); CREATININE 0.6 mg/dL (0.6-1.3); GLUCOSE 96 mg/dL (74-106); MAGNESIUM 2.2 mg/dL (1.8-2.4); PHOSPHORUS 2.1 mg/dL (2.5-4.9); POTASSIUM 3.9 mmol/L (3.5-5.1); SODIUM SERUM 140 mmol/L (136-145); UREA NITROGEN, BLOOD 7 mg/dL (7-18)
[2022-12-21] MEDS: APIXABAN 2.5 MG TABLET PO SCH (09:34)
[2022-12-21] MEDS: METHIMAZOLE (5MG) 5 MG TABLET PO SCH (09:34)
[2022-12-21] MEDS ORDERED: APIX2.5T PO (09:52)
[2022-12-21] MEDS ORDERED: CEFP200T14 PO (09:52)
== END 2022-12-21 11:51 | disposition home health service (06) | DRG 871 ==
LOC: ER 16:05 → TELE1 21:03 → MEDSG1 12-20 13:52
PROVIDERS: ADMIT Registered Nurse; ATTEND Nurse Practitioner Acute Care
DX: A41.9 Sepsis, unspecified organism (principal); J15.9 Unspecified bacterial pneumonia; N39.0 Urinary tract infection, site not specified; N12 Tubulo-interstitial nephritis, not specified as acute or chronic; E87.20 Acidosis, unspecified; E87.1 Hypo-osmolality and hyponatremia; E78.00 Pure hypercholesterolemia, unspecified; I10 Essential (primary) hypertension; Z88.1 Allergy status to other antibiotic agents; Z88.2 Allergy status to sulfonamides; Z79.899 Other long term (current) drug therapy; I48.91 Unspecified atrial fibrillation; B96.89 Other specified bacterial agents as the cause of diseases classified elsewhere; Z79.01 Long term (current) use of anticoagulants; E05.90 Thyrotoxicosis, unspecified without thyrotoxic crisis or storm; F41.9 Anxiety disorder, unspecified; B96.20 Unspecified Escherichia coli [E. coli] as the cause of diseases classified elsewhere
CPT/HCPCS: 36415; 71045-TC; 80048-TC; 80053-TC; 80076-TC; 80202-TC; 81001; 83605-TC; 83735-TC; 83880; 84100-TC; 84439-TC; 84443-TC; 84484-TC; 85025-TC; 85730-TC; 87040-TC; 87081-TC; 87086-TC; 93307-TC; A4223; C9113; C9803; G0378; J0692; J0696; J3370; J7030; J7060

== ENCOUNTER 2023-06-25 08:11 | Emergency (ER) | payer MEDICARE, OTHER ==
[~2023-06-25] VITALS: Ht 157.5 cm; Wt 59.4 kg
[~2023-06-25 08:11] MED LIST changes: +APIX2.5T PO; +CEFP200T14 PO
[2023-06-25] MEDS ORDERED: MECLIZINE HCL 12.5 MG TABLET PO ONE (09:00)
[2023-06-25] MEDS ORDERED: IV NS 0.9% 500 ML BAG IV ONE (09:00)
[2023-06-25 09:03] LABS: BASOPHILS % (AUTO) 0.9 % (0.0-2.0); EOSINOPHILS # (AUTO) 0.1 K/uL (0.0-0.7); EOSINOPHILS % (AUTO) 2.4 % (0.0-6.0); HEMATOCRIT 37 % (33-45); HEMOGLOBIN 12.2 g/dL (11.5-14.8); LYMPHOCYTES # (AUTO) 1.8 K/uL (0.8-4.8); LYMPHOCYTES % (AUTO) 32.2 % (20.0-44.0); MEAN CORPUSCULAR HEMOGLOBIN 30 PG (26.0-33.0); MEAN CORPUSCULAR HGB CONC 33 g/dl (31.0-36.0); MEAN CORPUSCULAR VOLUME 92 fL (82-100); MONOCYTES # (AUTO) 0.3 K/uL (0.1-1.30); MONOCYTES % (AUTO) 5.6 % (2.0-12.0); NEUTROPHILS # (AUTO) 3.2 K/uL (1.8-8.9); NEUTROPHILS % (AUTO) 58.9 % (43.0-81.0); PLATELET COUNT (AUTO) 252 K/uL (150-450); RED BLOOD CELL COUNT(AUTO) 4.04 MIL/uL (4.0-5.2); RED CELL DISTRIBUTION WIDTH 14.6 % (11.5-15.0); WHITE BLOOD COUNT (AUTO) 5.4 K/uL (4.3-11.0)
[2023-06-25 09:29] LABS: CALCIUM, SERUM 9.4 mg/dL (8.5-10.1); CARBON DIOXIDE 27 mmol/L (21-32); CHLORIDE 102 mmol/L (98-107); CREATININE 0.9 mg/dL (0.6-1.3); GLUCOSE 99 mg/dL (74-106); POTASSIUM 4.2 mmol/L (3.5-5.1); SODIUM SERUM 137 mmol/L (136-145); UREA NITROGEN, BLOOD 15 mg/dL (7-18)
[2023-06-25 09:35] LABS: ALANINE AMINOTRANSFERASE 18 U/L (12-78); ALBUMIN 3.8 g/dL (3.4-5.0); ALKALINE PHOSPHATASE 59 U/L (46-116); ASPARTATE AMINOTRANSFERASE 17 U/L (15-37); BILIRUBIN,DIRECT 0.2 mg/dL (0.0-0.2); BILIRUBIN,TOTAL 0.6 mg/dL (0.2-1.0); TOTAL PROTEIN, SERUM 7.9 g/dL (6.4-8.2)
[2023-06-25 10:44] LABS: APPEARANCE,URINE CLEAR (CLEAR); BILIRUBIN,URINE NEGATIVE (NEGATIVE); BLOOD, URINE NEGATIVE Ery/uL (NEGATIVE); COLOR,URINE YELLOW (YELLOW); KETONES,URINE NEGATIVE (NEGATIVE); LEUKOCYTE ESTERASE ,URINE TRACE (NEGATIVE); NITRITE, URINE NEGATIVE (NEGATIVE); PH,URINE 6.5 (5.0-8.0); PROTEIN,URINE NEGATIVE (NEGATIVE); UGLUCOSE NEGATIVE (NEGATIVE); UROBILINOGEN,URINE 0.2 EU/dL (0.2)
[2023-06-25] MEDS ORDERED: NITR100C6 PO (12:28)
[2023-06-25 12:41] VITALS: BP 155/70; TEMP 98.7; O2SAT 98
[2023-06-25] MEDS ORDERED: CIPR-262 PO (14:15)
== END 2023-06-25 12:41 | disposition home or self-care (01) ==
LOC: ER 08:20
DX: I48.91 Unspecified atrial fibrillation (principal); R42 Dizziness and giddiness; R00.2 Palpitations; I10 Essential (primary) hypertension; E78.00 Pure hypercholesterolemia, unspecified; E03.9 Hypothyroidism, unspecified; Z88.2 Allergy status to sulfonamides; Z88.8 Allergy status to other drugs, medicaments and biological substances; Z79.899 Other long term (current) drug therapy
CPT/HCPCS: 99285; 70450; 71045; 93005; 85025; 80048; 80076; 81003; 36415; 84484 ×2; 83880; J8597; J7040

== ENCOUNTER 2023-10-31 02:15 | Inpatient (IN) | payer MEDICARE, OTHER ==
[~2023-10-31] VITALS: Ht 157.5 cm; Wt 66.2 kg
[~2023-10-31 02:15] MED LIST changes: +CIPR-262 PO
[2023-10-31] MEDS ORDERED: ACETAMINOPHEN ES 500 MG TABLET PO ONE (03:00)
[2023-10-31] MEDS ORDERED: ACETAMINOPHEN ES 500 MG TABLET ONE (03:13)
[2023-10-31 03:31] LABS: BASOPHILS % (AUTO) 0.4 % (0.0-2.0); EOSINOPHILS % (AUTO) 0.5 % (0.0-6.0); HEMATOCRIT 30 % (33-45); HEMOGLOBIN 10.2 g/dL (11.5-14.8); LYMPHOCYTES # (AUTO) 0.6 K/uL (0.8-4.8); LYMPHOCYTES % (AUTO) 6.8 % (20.0-44.0); MEAN CORPUSCULAR HEMOGLOBIN 31 PG (26.0-33.0); MEAN CORPUSCULAR HGB CONC 34 g/dl (31.0-36.0); MEAN CORPUSCULAR VOLUME 91 fL (82-100); MONOCYTES # (AUTO) 0.3 K/uL (0.1-1.30); MONOCYTES % (AUTO) 3.4 % (2.0-12.0); NEUTROPHILS # (AUTO) 7.8 K/uL (1.8-8.9); NEUTROPHILS % (AUTO) 88.9 % (43.0-81.0); PLATELET COUNT (AUTO) 169 K/uL (150-450); RED CELL DISTRIBUTION WIDTH 14.5 % (11.5-15.0); WHITE BLOOD COUNT (AUTO) 8.8 K/uL (4.3-11.0)
[2023-10-31 03:50] LABS: ALANINE AMINOTRANSFERASE 23 U/L (12-78); ALBUMIN 2.9 g/dL (3.4-5.0); ALKALINE PHOSPHATASE 55 U/L (46-116); ASPARTATE AMINOTRANSFERASE 45 U/L (15-37); BILIRUBIN,DIRECT 0.1 mg/dL (0.0-0.2); BILIRUBIN,TOTAL 0.8 mg/dL (0.2-1.0); CALCIUM, SERUM 8.8 mg/dL (8.5-10.1); CARBON DIOXIDE 25 mmol/L (21-32); CHLORIDE 98 mmol/L (98-107); CREATININE 0.8 mg/dL (0.6-1.3); GLUCOSE 120 mg/dL (74-106); INR 1.1 (0.91-1.10); PARTIAL THROMBOPLASTIN TIME 31.2 SEC (24.3-34.3); POTASSIUM 5.2 mmol/L (3.5-5.1); PROTHROMBIN TIME 11.6 SECS (9.2-11.1); SODIUM SERUM 129 mmol/L (136-145); TOTAL PROTEIN, SERUM 6.9 g/dL (6.4-8.2); UREA NITROGEN, BLOOD 12 mg/dL (7-18)
[2023-10-31 05:07] LABS: APPEARANCE,URINE CLEAR (CLEAR); BILIRUBIN,URINE NEGATIVE (NEGATIVE); BLOOD, URINE TRACE-INTA Ery/uL (NEGATIVE); COLOR,URINE YELLOW (YELLOW); KETONES,URINE NEGATIVE (NEGATIVE); LEUKOCYTE ESTERASE ,URINE NEGATIVE (NEGATIVE); NITRITE, URINE POSITIVE (NEGATIVE); PH,URINE 5.5 (5.0-8.0); PROTEIN,URINE NEGATIVE (NEGATIVE); UGLUCOSE NEGATIVE (NEGATIVE); UROBILINOGEN,URINE 0.2 EU/dL (0.2)
[2023-10-31 05:10] LABS: LACTIC ACID 2.4 mmol/L (0.4-2.0)
[2023-10-31 05:43] LABS: ADD URINE CULTURE YES; BACTERIA,URINE 1+ /HPF (None Seen); WBC,URINE 0-2 /HPF (0-3)
[2023-10-31] MEDS ORDERED: CIPROFLOXACIN IV RTU 200 ML IV ONE (05:57)
[2023-10-31] MEDS ORDERED: IV NS 0.9% 1,000 ML BAG IV ONE (06:00)
[2023-10-31] MEDS ORDERED: CIPROFLOXACIN IV RTU 400 MG in PREMIX 1 EA IV SCH (06:00)
[2023-10-31] MEDS ORDERED: IV NS 0.9% 1,000 ML IV SCH (07:00)
[2023-10-31] MEDS ORDERED: MORPHINE SULFATE INJ 2 MG/ML DISP.SYRIN IV PRN (07:00)
[2023-10-31] MEDS ORDERED: hydrALAZINE HCL IV 20 MG VIAL IV PRN (07:00)
[2023-10-31] MEDS ORDERED: ONDANSETRON HCL/PF 4 MG/2 ML VIAL IVP PRN (07:00)
[2023-10-31 08:00] VITALS: BP 123/62; TEMP 97.1; O2SAT 96
[2023-10-31] MEDS ORDERED: HYDR12.55 PO (08:06)
[2023-10-31] MEDS: MEROPENEM 1 G in IV NS 0.9% 100 ML IV SCH ×2 (09:05→21:47)
[2023-10-31] MEDS: IV NS 0.9% 1,000 ML IV PRN (09:09)
[2023-10-31] MEDS: BENAZEPRIL HCL 20 MG TABLET PO SCH (10:08)
[2023-10-31] MEDS: METHIMAZOLE (5MG) 5 MG TABLET PO SCH (10:08)
[2023-10-31] MEDS: APIXABAN 2.5 MG TABLET PO SCH ×2 (10:09→16:32)
[2023-10-31] MEDS: ATENOLOL 50 MG TABLET PO SCH (10:11)
[2023-10-31 11:22] VITALS: BP 123/62; TEMP 97.1
[2023-10-31 11:48] LABS: CALCIUM, SERUM 8.6 mg/dL (8.5-10.1); CREATININE 0.8 mg/dL (0.6-1.3); POTASSIUM 4.1 mmol/L (3.5-5.1)
[2023-10-31] MEDS: ACETAMINOPHEN 325 MG TABLET PO PRN (15:41)
[2023-10-31 16:00] VITALS: BP 136/77; TEMP 99; O2SAT 94
[2023-10-31 20:00] VITALS: BP 126/71; TEMP 98.1; O2SAT 96
[2023-10-31] MEDS: SIMVASTATIN 20 MG TABLET PO SCH (21:48)
[2023-11-01] VITALS: BP 145/50; TEMP 98.2; O2SAT 97
[2023-11-01] MEDS: ACETAMINOPHEN 325 MG TABLET PO PRN ×4 (03:00→19:39)
[2023-11-01 04:00] VITALS: BP 118/61; TEMP 98.3; O2SAT 97
[2023-11-01] MEDS: IV NS 0.9% 1,000 ML IV PRN (06:41)
[2023-11-01 07:49] LABS: BASOPHILS % (AUTO) 0.3 % (0.0-2.0); EOSINOPHILS % (AUTO) 0.1 % (0.0-6.0); HEMATOCRIT 29 % (33-45); HEMOGLOBIN 9.8 g/dL (11.5-14.8); LYMPHOCYTES # (AUTO) 1.2 K/uL (0.8-4.8); LYMPHOCYTES % (AUTO) 14.3 % (20.0-44.0); MEAN CORPUSCULAR HEMOGLOBIN 31 PG (26.0-33.0); MEAN CORPUSCULAR HGB CONC 34 g/dl (31.0-36.0); MEAN CORPUSCULAR VOLUME 92 fL (82-100); MONOCYTES # (AUTO) 0.5 K/uL (0.1-1.30); MONOCYTES % (AUTO) 5.9 % (2.0-12.0); NEUTROPHILS # (AUTO) 6.5 K/uL (1.8-8.9); NEUTROPHILS % (AUTO) 79.4 % (43.0-81.0); PLATELET COUNT (AUTO) 160 K/uL (150-450); RED CELL DISTRIBUTION WIDTH 14.2 % (11.5-15.0); WHITE BLOOD COUNT (AUTO) 8.2 K/uL (4.3-11.0)
[2023-11-01 08:00] VITALS: BP 139/70; TEMP 98.2; O2SAT 98
[2023-11-01 08:06] LABS: ALBUMIN 2.6 g/dL (3.4-5.0); BILIRUBIN,TOTAL 0.7 mg/dL (0.2-1.0); CREATININE 0.8 mg/dL (0.6-1.3); MAGNESIUM 2.1 mg/dL (1.8-2.4); PHOSPHORUS 2.8 mg/dL (2.5-4.9); POTASSIUM 4.1 mmol/L (3.5-5.1); TOTAL PROTEIN, SERUM 6.1 g/dL (6.4-8.2)
[2023-11-01] MEDS: MEROPENEM 1 G in IV NS 0.9% 100 ML IV SCH ×2 (09:18→20:42)
[2023-11-01] MEDS: ATENOLOL 50 MG TABLET PO SCH (09:19)
[2023-11-01] MEDS: METHIMAZOLE (5MG) 5 MG TABLET PO SCH (09:19)
[2023-11-01] MEDS: BENAZEPRIL HCL 20 MG TABLET PO SCH (09:20)
[2023-11-01] MEDS: APIXABAN 2.5 MG TABLET PO SCH ×2 (09:26→17:43)
[2023-11-01 12:00] VITALS: BP 131/63; TEMP 97.8; O2SAT 98
[2023-11-01 14:35] LABS: THYROID STIMULATING HORMONE 2.37 uIU/mL (0.358-3.74)
[2023-11-01 16:00] VITALS: BP 139/66; TEMP 98.1; O2SAT 98
[2023-11-01 20:00] VITALS: BP 116/45; TEMP 98.6; O2SAT 94
[2023-11-01] MEDS: SIMVASTATIN 20 MG TABLET PO SCH (21:25)
[2023-11-02] VITALS: BP 139/76; TEMP 98.4; O2SAT 95
[2023-11-02 04:00] VITALS: BP 123/60; TEMP 97.8; O2SAT 97
[2023-11-02 08:00] VITALS: BP 128/60; TEMP 99.1; O2SAT 97
[2023-11-02 08:45] LABS: CALCIUM, SERUM 8.4 mg/dL (8.5-10.1); CARBON DIOXIDE 22 mmol/L (21-32); CHLORIDE 103 mmol/L (98-107); CREATININE 0.7 mg/dL (0.6-1.3); GLUCOSE 100 mg/dL (74-106); SODIUM SERUM 135 mmol/L (136-145); UREA NITROGEN, BLOOD 11 mg/dL (7-18)
[2023-11-02] MEDS: MEROPENEM 1 G in IV NS 0.9% 100 ML IV SCH (10:57)
[2023-11-02] MEDS: BENAZEPRIL HCL 20 MG TABLET PO SCH (10:58)
[2023-11-02] MEDS: METHIMAZOLE (5MG) 5 MG TABLET PO SCH (10:58)
[2023-11-02] MEDS: APIXABAN 2.5 MG TABLET PO SCH (11:00)
[2023-11-02 11:08] VITALS: BP 128/60
[2023-11-02] MEDS: ATENOLOL 50 MG TABLET PO SCH (11:08)
[2023-11-02] MEDS ORDERED: LEVO500T90 PO (11:48)
[2023-11-02 14:07] LABS: *SPE A/G RATIO 0.9 (0.7-1.7); *SPE ALBUMIN 2.6 g/dL (2.9-4.4); *SPE ALPHA-1-GLOBULIN 0.3 g/dL (0.0-0.4); *SPE ALPHA-2-GLOBULIN 0.9 g/dL (0.4-1.0); *SPE GLOBULIN, TOTAL 2.8 g/dL (2.2-3.9); *SPE M-SPIKE Not Observed g/dL (Not Observed); *SPE PROTEIN TOTAL 5.4 g/dL (6.0-8.5); *SPEGAMMA GLOBULIN 0.7 g/dL (0.4-1.8)
== END 2023-11-02 16:00 | disposition home or self-care (01) | DRG 690 ==
LOC: ER 02:17 → MED 07:50 → TELE 22:08
PROVIDERS: ADMIT Nurse Practitioner Acute Care; ATTEND Nurse Practitioner Acute Care
DX: N39.0 Urinary tract infection, site not specified (principal); E44.0 Moderate protein-calorie malnutrition; E87.1 Hypo-osmolality and hyponatremia; E87.20 Acidosis, unspecified; I48.20 Chronic atrial fibrillation, unspecified; Z20.822 Contact with and (suspected) exposure to COVID-19; D64.9 Anemia, unspecified; E78.00 Pure hypercholesterolemia, unspecified; Z88.1 Allergy status to other antibiotic agents; Z88.2 Allergy status to sulfonamides; Z79.01 Long term (current) use of anticoagulants; Z79.899 Other long term (current) drug therapy; B96.89 Other specified bacterial agents as the cause of diseases classified elsewhere; E87.5 Hyperkalemia; E78.5 Hyperlipidemia, unspecified; M19.90 Unspecified osteoarthritis, unspecified site; E05.90 Thyrotoxicosis, unspecified without thyrotoxic crisis or storm; E88.09 Other disorders of plasma-protein metabolism, not elsewhere classified; I11.9 Hypertensive heart disease without heart failure; M41.9 Scoliosis, unspecified; Z88.3 Allergy status to other anti-infective agents; Z87.448 Personal history of other diseases of urinary system
CPT/HCPCS: 36415; 71045-TC; 80048-TC; 80053-TC; 80061-TC; 80076-TC; 81001; 82728-TC; 83540-TC; 83605-TC; 83735-TC; 84100-TC; 84155; 84165; 84439-TC; 84443-TC; 84484-TC; 85025-TC; 85730-TC; 87040-TC; 87086-TC; 93307-TC; A4216; A4223; G0378; J0744; J2185; J2270; J7030

== ENCOUNTER 2024-07-22 08:35 | Emergency (ER) | payer MEDICARE, OTHER ==
[~2024-07-22] VITALS: Ht 152.4 cm; Wt 59.0 kg
[~2024-07-22 08:35] MED LIST changes: -CEFP200T14 PO; -CEPH500C2 PO; -CIPR-262 PO; -DABI150C PO; +HYDR12.55 PO; +LEVO500T90 PO; -LIDO1ADH TP; -SULF1TAB48 PO
[2024-07-22] MEDS ORDERED: ONDANSETRON HCL/PF 4 MG/2 ML VIAL ONE (08:58)
[2024-07-22 09:00] LABS: BASOPHILS % (AUTO) 0.5 % (0.0-2.0); EOSINOPHILS % (AUTO) 0.1 % (0.0-6.0); HEMATOCRIT 37 % (33-45); HEMOGLOBIN 12.5 g/dL (11.5-14.8); LYMPHOCYTES # (AUTO) 1.1 K/uL (0.8-4.8); LYMPHOCYTES % (AUTO) 11.2 % (20.0-44.0); MEAN CORPUSCULAR HEMOGLOBIN 31 PG (26.0-33.0); MEAN CORPUSCULAR HGB CONC 34 g/dl (31.0-36.0); MEAN CORPUSCULAR VOLUME 90 fL (82-100); MONOCYTES # (AUTO) 0.3 K/uL (0.1-1.30); MONOCYTES % (AUTO) 3.3 % (2.0-12.0); NEUTROPHILS # (AUTO) 8.3 K/uL (1.8-8.9); NEUTROPHILS % (AUTO) 84.9 % (43.0-81.0); PLATELET COUNT (AUTO) 272 K/uL (150-450); RED BLOOD CELL COUNT(AUTO) 4.08 MIL/uL (4.0-5.2); RED CELL DISTRIBUTION WIDTH 14.8 % (11.5-15.0); WHITE BLOOD COUNT (AUTO) 9.7 K/uL (4.3-11.0)
[2024-07-22] MEDS: ONDANSETRON HCL/PF 4 MG/2 ML VIAL IVP ONE (09:00)
[2024-07-22] MEDS: IV NS 0.9% 1,000 ML BAG IV ONE (09:05)
[2024-07-22] MEDS ORDERED: IV NS 0.9% 250 ML IV ONE (09:05)
[2024-07-22] MEDS ORDERED: PANTOPRAZOLE 40 MG VIAL ONE (09:05)
[2024-07-22] MEDS ORDERED: CT SWABBABLE VALVE TRANS SET 1 EA INFUS.SET MC ONE (09:05)
[2024-07-22] MEDS ORDERED: IOHEXOL-300 100 ML VIAL IV ONE (09:05)
[2024-07-22] MEDS: PANTOPRAZOLE 40 MG VIAL IV ONE (09:06)
[2024-07-22] MEDS: MORPHINE SULFATE INJ 2 MG/ML DISP.SYRIN IV ONE (09:06)
[2024-07-22 09:14] LABS: ALANINE AMINOTRANSFERASE 16 U/L (12-78); ALBUMIN 3.5 g/dL (3.4-5.0); ALKALINE PHOSPHATASE 67 U/L (46-116); ASPARTATE AMINOTRANSFERASE 19 U/L (15-37); BILIRUBIN,DIRECT 0.2 mg/dL (0.0-0.2); BILIRUBIN,TOTAL 0.8 mg/dL (0.2-1.0); CALCIUM, SERUM 9.1 mg/dL (8.5-10.1); CARBON DIOXIDE 29 mmol/L (21-32); CHLORIDE 102 mmol/L (98-107); GLUCOSE 125 mg/dL (74-106); LIPASE 191 U/L (16-77); POTASSIUM 4.3 mmol/L (3.5-5.1); SODIUM SERUM 138 mmol/L (136-145); TOTAL PROTEIN, SERUM 7.9 g/dL (6.4-8.2); UREA NITROGEN, BLOOD 21 mg/dL (7-18)
[2024-07-22 10:15] LABS: APPEARANCE,URINE CLEAR (CLEAR); BILIRUBIN,URINE NEGATIVE (NEGATIVE); BLOOD, URINE TRACE-INTA Ery/uL (NEGATIVE); COLOR,URINE YELLOW (YELLOW); KETONES,URINE NEGATIVE (NEGATIVE); LEUKOCYTE ESTERASE ,URINE NEGATIVE (NEGATIVE); NITRITE, URINE NEGATIVE (NEGATIVE); PROTEIN,URINE NEGATIVE (NEGATIVE); UGLUCOSE NEGATIVE (NEGATIVE); UROBILINOGEN,URINE 0.2 EU/dL (0.2)
[2024-07-22 10:25] LABS: ADD URINE CULTURE NO; BACTERIA,URINE Rare /HPF (None Seen); SQUAMOUS EPITHELIAL CELL,UR None Seen /HPF (None Seen); WBC,URINE 0-2 /HPF (0-3)
[2024-07-22] MEDS ORDERED: ONDA4TAB11 PO (10:50)
[2024-07-22] MEDS ORDERED: PANT20TA2 PO (10:50)
[2024-07-22 10:56] VITALS: BP 135/70; TEMP 98.6; O2SAT 97
== END 2024-07-22 10:56 | disposition home or self-care (01) ==
LOC: ER 08:49
DX: K52.9 Noninfective gastroenteritis and colitis, unspecified (principal); R10.13 Epigastric pain; I48.91 Unspecified atrial fibrillation; I10 Essential (primary) hypertension; E78.00 Pure hypercholesterolemia, unspecified; Z79.01 Long term (current) use of anticoagulants; Z79.899 Other long term (current) drug therapy; Z88.1 Allergy status to other antibiotic agents; Z88.2 Allergy status to sulfonamides
CPT/HCPCS: 99285; 74177; 96374; 76705; 96361; 96375; 93005; 85025; 80048; 83690; 80076; 81001; 36415; 84484; J2405; J7030; J7050; J2470; A4223; Q9967